=== PATIENT | male | born 1965 | race Caucasian/White ===

== ENCOUNTER 2024-02-16 17:04 | Inpatient (IN) | payer OTHER, SELFPAY ==
[2024-02-16] VITALS (15 sets, daily range): BP systolic 112–157; BP diastolic 71–100; BMI 33.1
--- NOTE | 2024-02-16 14:01 | ED.GENMED ---
History of Present Illness
<ANA Vogt - Last Filed: 02/16/24 16:16>
General
Chief Complaint: Cardiac Symptoms
Source: patient
Exam Limitations: none
Time Seen by Provider: 02/16/24 14:00
Nursing documentation reviewed up to this point in time: agreed with
History of Present Illness
History of Present Illness:
Patient is a 58-year-old male with past medical history of hypertension high cholesterol diabetes smoker presents to the ER with chest pain. He reports for the past week he has had this chest pain. It has woken him up in the middle of the night
for the past several days. His last episode he believes was Thursday night.
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 He currently describes this as chest pressure. He denies any radiation. Denies any associated nausea
vomiting. Denies any radiation.
He has no diagnosis of reflux though sometimes in the middle the night he does feel a burning sensation in his chest. Typically he reports that the episodes that have occurred in the middle of the night have resolved after 1-2 hrs with walking
around. he has not taken anything for his symptoms.
Review of Systems
<ANA Vogt - Last Filed: 02/16/24 16:16>
Review of Systems
Allergies reviewed?: Yes
All Other Systems: ROS reviewed and negative except as documented in HPI and ROS
Constitutional: Reports no symptoms
Respiratory: Reports no symptoms; Denies trouble breathing
Cardiac: Reports chest pain; Denies diaphoresis, palpitations or syncope
ABD/GI: Denies nausea or vomiting
: Reports no symptoms
Musculoskeletal: Reports no symptoms
Skin: Reports no symptoms
Neurological: Reports no symptoms
Psychiatric: Reports no symptoms
Phy Exam
<ANA Vogt - Last Filed: 02/16/24 16:16>
General Physical Exam
General Presentation: no apparent distress
General age: appears stated age
General Skin: warm and dry
General Habitus: normal
General Mental: alert
General Hydration: appears well hydrated
Cardiovascular Exam
Cardiovascular Exam: regular rate/rhythm, no murmur and normal peripheral pulses
Pulmonary Exam
Pulmonary Exam: lungs clear and no respiratory distress
Neurological Exam
Neurological Exam: alert and oriented x3
Course
<ANA Vogt - Last Filed: 02/16/24 16:16>
Orders/Labs/Results
Orders:
Orders
02/16/24 13:50
EKG [Electrocardiogram (*1)] Urgent
Reason for Study: Chest Pain
EKG- Treatment ONCE
02/16/24 13:59
Complete Blood Count/With Diff Urgent
Comprehensive Metabolic Panel Urgent
Prothrombin Time Urgent
Troponin I Urgent
02/16/24 14:26
Aspirin Chewable [Low Strength Aspirin] 324 mg PO NOW STA
Nitroglycerin Sublingual [Nitrostat (Sublingual)] 0.4 mg SL NOW STA
02/16/24 14:51
0.9% Sodium Chloride 1000 ml [Nss] 1,000 ml IV BOLUS
02/16/24 15:05
Nitroglycerin Sublingual [Nitrostat (Sublingual)] 0.4 mg SL NOW STA
02/16/24 15:27
Morphine Sulfate 4 mg IV NOW STA
02/16/24 15:28
Electrocardiogram (*1) Stat
Reason for Study: Other
Other Reason for Exam: chest pain
EKG- Treatment ONCE
Morphine Sulfate 4 mg .ROUTE .STK-MED ONE
02/16/24 15:42
Heparin 5,000 units IV NOW STA
Ticagrelor [Brilinta] 180 mg PO ONCE ONE
02/16/24 15:49
Heparin 1000 Units/500 ml [Heparin] 1,000 units in 500 ml .ROUTE .STK-MED
Heparin Sodium,Porcine/Ns/Pf [Heparin 2000 Units/1000 ml] 2,000 unit in 1,000 ml .ROUTE .STK-MED
Lidocaine HCl/Pf [Xylocaine-Mpf 1% Vial] 100 mg .ROUTE .STK-MED ONE
Nitroglycerin [Tridil] 1,500 mcg .ROUTE .STK-MED ONE
Verapamil Injectable [Isoptin/Verapamil Injection] 5 mg .ROUTE .STK-MED ONE
02/16/24 15:52
Fentanyl Citrate/Pf [Sublimaze] 100 mcg .ROUTE .STK-MED ONE
Midazolam HCl [Versed] 2 mg .ROUTE .STK-MED ONE
02/16/24 15:53
Heparin 10,000 units .ROUTE .STK-MED ONE
Abnormal Lab Results
02/16/24 02/16/24
13:59 16:02
WBC 12.0 H 10^3/uL
(4.8-10.8)
Abs Immat Gran (auto) 0.1 H 10^3/uL
(0-0.05)
Absolute Lymphs (auto) 4.7 H 10^3/uL
(1.2-3.4)
Absolute Monos (auto) 0.9 H 10^3/uL
(0.1-0.6)
BUN 25 H mg/dl
(9-20)
Glucose 136 H mg/dl
(70-99)
Troponin I 0.064 H* ng/ml
Albumin 5.2 H g/dl
(3.5-5.0)
POC ACT Low Range 216 H Seconds
(116-155)
02/16/24 13:59
02/16/24 13:59
Vital Signs
Initial and Last Documented VS:
Initial Vital Signs
Temp Pulse Resp BP Pulse Ox
98.3 F 97 19 155/100 99
02/16/24 13:53 02/16/24 13:53 02/16/24 13:53 02/16/24 13:53 02/16/24 13:53
Last Documented Vital Signs
Temp Pulse Resp BP Pulse Ox
98.3 F 94 11 140/86 98
02/16/24 13:53 02/16/24 15:48 02/16/24 15:48 02/16/24 15:48 02/16/24 15:30
<Terrence Tao, DO - Last Filed: 02/16/24 15:49>
Orders/Labs/Results
Orders:
Orders
02/16/24 13:50
EKG [Electrocardiogram (*1)] Urgent
Reason for Study: Chest Pain
EKG- Treatment ONCE
02/16/24 13:59
Complete Blood Count/With Diff Urgent
Comprehensive Metabolic Panel Urgent
Prothrombin Time Urgent
Troponin I Urgent
02/16/24 14:26
Aspirin Chewable [Low Strength Aspirin] 324 mg PO NOW STA
Nitroglycerin Sublingual [Nitrostat (Sublingual)] 0.4 mg SL NOW STA
02/16/24 14:51
0.9% Sodium Chloride 1000 ml [Nss] 1,000 ml IV BOLUS
02/16/24 15:05
Nitroglycerin Sublingual [Nitrostat (Sublingual)] 0.4 mg SL NOW STA
02/16/24 15:27
Morphine Sulfate 4 mg IV NOW STA
02/16/24 15:28
Electrocardiogram (*1) Stat
Reason for Study: Other
Other Reason for Exam: chest pain
EKG- Treatment ONCE
Morphine Sulfate 4 mg .ROUTE .STK-MED ONE
02/16/24 15:42
Heparin 5,000 units IV NOW STA
Ticagrelor [Brilinta] 180 mg PO ONCE ONE
02/16/24 15:49
Heparin 1000 Units/500 ml [Heparin] 1,000 units in 500 ml .ROUTE .STK-MED
Heparin Sodium,Porcine/Ns/Pf [Heparin 2000 Units/1000 ml] 2,000 unit in 1,000 ml .ROUTE .STK-MED
Lidocaine HCl/Pf [Xylocaine-Mpf 1% Vial] 100 mg .ROUTE .STK-MED ONE
Nitroglycerin [Tridil] 1,500 mcg .ROUTE .STK-MED ONE
Verapamil Injectable [Isoptin/Verapamil Injection] 5 mg .ROUTE .STK-MED ONE
02/16/24 15:52
Fentanyl Citrate/Pf [Sublimaze] 100 mcg .ROUTE .STK-MED ONE
Midazolam HCl [Versed] 2 mg .ROUTE .STK-MED ONE
02/16/24 15:53
Heparin 10,000 units .ROUTE .STK-MED ONE
Abnormal Lab Results
02/16/24 02/16/24
13:59 16:02
WBC 12.0 H 10^3/uL
(4.8-10.8)
Abs Immat Gran (auto) 0.1 H 10^3/uL
(0-0.05)
Absolute Lymphs (auto) 4.7 H 10^3/uL
(1.2-3.4)
Absolute Monos (auto) 0.9 H 10^3/uL
(0.1-0.6)
BUN 25 H mg/dl
(9-20)
Glucose 136 H mg/dl
(70-99)
Troponin I 0.064 H* ng/ml
Albumin 5.2 H g/dl
(3.5-5.0)
POC ACT Low Range 216 H Seconds
(116-155)
02/16/24 13:59
02/16/24 13:59
Vital Signs
Initial and Last Documented VS:
Initial Vital Signs
Temp Pulse Resp BP Pulse Ox
98.3 F 97 19 155/100 99
02/16/24 13:53 02/16/24 13:53 02/16/24 13:53 02/16/24 13:53 02/16/24 13:53
Last Documented Vital Signs
Temp Pulse Resp BP Pulse Ox
98.3 F 94 11 140/86 98
02/16/24 13:53 02/16/24 15:48 02/16/24 15:48 02/16/24 15:48 02/16/24 15:30
<ANA Vogt - Last Filed: 02/16/24 16:16>
MDM/Problems Addressed
Differential Diagnosis Includes:
Not limited to ACS, reflux, musculoskeletal chest pain
MDM/Problems Addressed:
1510: Patient is a 58-year-old male who is a smoker history of hypertension high cholesterol and diabetes presents to the ER for evaluation of chest pain. He has had intermittent chest pain this week which has awoken him up in the middle of the
night. Each episode has lasted for maybe 1 to 2 hours and goes away when he walks around. He has not taken anything for pain. He denies any radiation. He did initially describe this as burning however today prior to arrival he got into a client
and started sweating and having chest pressure. This does not feel like it is burning. He denies any radiation nausea vomiting shortness of breath. He presents hypertensive, on exam his lungs are clear is nontachycardic his abdomen is nontender.
Cardiac troponin ordered and elevated at 0.064. No acute elevation patient was given aspirin 1 nitroglycerin which did not relieve symptoms will attempt another nitroglycerin and reevaluate. Case discussed ED physician.
Repeat ekg questionable elevation in inferior leads discussed with cardiology STEMI called. Cardiology at bedside patient to [facility] . Pain remains the same consistent.
<ANA Vogt - Last Filed: 02/16/24 16:16>
*Pulse Oximetry
Patient hypoxic: no
*EKG
Interpreted by ED Provider?: Yes
Comparison EKG: no comparison EKG present
Heart Rate: 88
Rate: normal
Rhythm: sinus
Ischemia: non-specific ST changes
*Critical Care Note
Total Time (30-74mins, 75-104mins- exclusive of procedures): Not Applicable (Critical care statement: A total of 30 minutes of critical care time was provided for this patient. This includes management of unstable vital signs, evaluation of the
patient at bedside, reviewing the patient's pertinent medical records, discussion with consultants, review of old EKGs and review of)
<ANA Vogt - Last Filed: 02/16/24 16:16>
Patient Management
Discussion with other providers: [employer] Supervisor (DR Rojas, DR Coelho (DR Coelho at bedside ) )
ED Attending Note
<ANA Vogt - Last Filed: 02/16/24 16:16>
-
Portions of this chart may have been created with voice recognition software.� Occasional wrong word or��sound alike� substitutions may have occurred due to the inherent limitations of voice recognition software.
<Terrence Tao DO - Last Filed: 02/16/24 15:49>
ED Attending Note
Patient seen and examined by attending physician: Yes
ED Attending Note:
I reviewed and agree with history as in medical [facility]. Patient had chest pain, initially nonspecific ST changes, repeat EKG showing STEMI. Alerted Dr. Calvert, who stated Dr. Coelho will be taking patient to [facility]. Aspirin, heparin and
Brilinta given.
Discharge Plan
Departure
Patient Disposition: [facility]
Date of Disposition: 02/16/24
Time of Disposition: 15:45
Presentation/result/management discussed w/ accepting MD/DO: kristen
Patient with high blood pressure during this ER visit?: Yes
Condition: Fair
Covid-19: Not Applicable
Discharge Problem:
Chest pain
Interventions
Interventions:
*Risk Screen - Suicide Last Done: 02/16/24 13:53
*General Assessment Last Done: 02/16/24 13:53
*Neglect/Abuse Screening Last Done: 02/16/24 13:53
ED- Fall Risk Assessment Last Done: 02/16/24 14:05
*ED COVID-19 Vaccine History Last Done: 02/16/24 14:05
*Nursing Disposition Last Done: 02/16/24 15:52
ED- Pulmonary Assessment Last Done: 02/16/24 14:05
ED- Cardiac Assessment Last Done: 02/16/24 14:05
Discharge Date and Time
Discharge Date/Time: 02/16/24 15:53
[2024-02-16 14:24] LABS: % Eosinophils 1.2 % (0-6); % Immature Granulocytes 0.5 % (0-0.5); % Lymphocytes 39.4 % (20.5-51.1); % Monocytes 7.3 % (1.7-9.3); % Neutrophils 50.6 % (42.2-75.2); Absolute Basophils 0.1 10^3/uL (0-0.2); Absolute Eosinophils 0.1 10^3/uL (0-0.7); Absolute Immature Granulocytes 0.1 10^3/uL (0-0.05); Absolute Lymphocytes 4.7 10^3/uL (1.2-3.4); Absolute Monocytes 0.9 10^3/uL (0.1-0.6); Absolute Neutrophils 6.1 10^3/uL (1.4-6.5); Hematocrit 50.2 % (39.0-52.0); Hemoglobin 17.3 g/dL (13.0-18.0); Mean Corp Hgb Conc. 34.5 g/dL (33.0-37.0); Mean Corpuscular Hgb 30.1 pg (27.0-31.0); Mean Corpuscular Volume 87.5 fL (80.0-94.0); Mean Platelet Volume 9.8 fL (7.4-10.4); Nucleated Red Blood Cells % 0 % (-); Platelet Count 252 10^3/uL (130-400); Red Blood Cell Count 5.74 10^6/uL (4.70-6.10); Red Cell Dist. Width 12.3 % (11.5-14.5)
[2024-02-16 14:32] LABS: ALT (SGPT) 32 U/L (0-50); AST (SGOT) 30 U/L (17-59); Albumin 5.2 g/dl (3.5-5.0); Alkaline Phosphatase 59 U/L (38-126); Blood Urea Nitrogen 25 mg/dl (9-20); Carbon Dioxide 27 mmol/L (22-30); Chloride 101 mmol/L (98-107); Estimated Creatinine Clearance 91 ml/min; Glucose 136 mg/dl (70-99); Potassium 4.3 mmol/L (3.5-5.1); Sodium 141 mmol/L (135-145); Total Protein 7.4 g/dl (6.3-8.2); eGFR > 60.00
[2024-02-16] MEDS: NITROSTAT (SUBLINGUAL) 0.4 MG SL ×2 (14:41→15:05)
[2024-02-16] MEDS: LOW STRENGTH ASPIRIN 324 MG PO (14:41)
[2024-02-16 14:57] LABS: Troponin I 0.064 ng/ml
[2024-02-16] MEDS: NSS 1000 IV ×2 (15:06→18:41)
[2024-02-16] MEDS: MORPHINE SULFATE 4 MG IV (15:30)
[2024-02-16] MEDS: BRILINTA 180 MG PO (15:45)
[2024-02-16] MEDS: HEPARIN 5000 UNITS IV (15:45)
[2024-02-16 16:10] LABS: ACT-LR - POC 216 Seconds (116-155)
[2024-02-16 16:22] LABS: ACT-LR - POC 261 Seconds (116-155)
--- NOTE | 2024-02-16 16:23 | HPS.HSE ---
Family Physician
-
Family Physician: * NONE
Chief Complaint
-
chest pain/pressure
History of Present Illness
This is a 58 y/o white male, PMH sig for HTN, HLD, NIDDM, active tobacco abuse, no sig FH, lives in [place] and [place].
Presented to ER after several days of intermittent chest pain/burning, no associated symptoms, waking him at night, duration of 1-2 hours, relieved with ambulation. Today, he developed chest pain and pressure with diaphoresis while at work. This
prompted him to come to the ER. EKG SR 90s with inferior ST elevations, as well as anteroseptal TWI. He was given aspirin 324mg, brilinta 180mg, heparin 5000u, as well as morphine 4mg for pain. He continues to have 7-8/10 chest pain/pressure with
mild dyspnea. First troponin 0.064. 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
Medical History
Past Medical History
Past Medical History: Reports HTN, Hypercholesterolemia, NIDDM and Other (obesity)
Past Surgical History: Reports None
Social History
Tobacco: Smoker (1/2-1PPD x25 years)
Alcohol: None
Drug: None
Personal:
Living: With Family
Employment: Employed (lives in [place], [place])
Family History
Family History: Not pertinent
Allergies / Home Medications
Allergies reflects when Allergies were last updated in [facility].
Home Medications with original date entered in [facility]
Allergy/Medication List:
ALLG: NKDA
MEDS: amlodipine 5mg/daily
empaglifozin 25mg/daily
tricor 145mg/daily
losartan/HCTZ 100/25mg/daily
pioglitazone 30mg/daily
trazodone 50mg/HSPRN
Review of Systems
-
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
History Source: Patient
A 12 point ROS was completed and negative except as noted: Yes
Cardiac: Reports Chest Pain (11/24 on cath table) and Diaphoresis
Physical Exam
Vital Signs
Vital Signs
Temp Pulse Resp BP Pulse Ox
98.3 F 94 11 140/86 98
02/16/24 13:53 02/16/24 15:48 02/16/24 15:48 02/16/24 15:48 02/16/24 15:30
Physical Exam
General: Other (PE deferred d/t urgent nature of cath)
Laboratory Results
-
02/16/24 13:59
02/16/24 13:59
Laboratory Results
PT 13.0 Sec (11.4-14.6) 02/16/24 13:59
INR 1.00 02/16/24 13:59
Total Bilirubin 1.0 mg/dl (0.2-1.3) 02/16/24 13:59
AST 30 U/L (17-59) 02/16/24 13:59
ALT 32 U/L (0-50) 02/16/24 13:59
Alkaline Phosphatase 59 U/L (38-126) 02/16/24 13:59
Troponin I 0.064 ng/ml H* 02/16/24 13:59
Laboratory Tests
02/16/24
13:59
Troponin I 0.064 H*
Data Reviewed
-
Medical Tests (Nuc Med, Echo, EKG etc): Image Personally Visualized and interpreted, Report Reviewed by me and Discussed with Physician
Lab Data: Labs Reviewed by me and Discussed with Physician
Impression/Plan
-
This is a 58 y/o white male, PMH sig for HTN, HLD, NIDDM, active tobacco abuse, no sig FH, lives in [place] and [place] the [employer] [facility] [employer] [place].
Presented to ER after several days of intermittent chest pain/burning, no associated symptoms, waking him at night, duration of 1-2 hours, relieved with ambulation. Today, he developed non-exertional chest pain and pressure with diaphoresis while at
work. This prompted him to come to the ER. EKG SR 90s with inferior ST elevations, as well as anteroseptal TWI. He was given aspirin 324mg, brilinta 180mg, heparin 5000u, as well as morphine 4mg for pain. He continues to have 7-8/10 chest
pain/pressure with mild dyspnea. First troponin 0.064. 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
IMPRESSION/PLAN:
Acute Inferior STEMI
Urgent LHC now
1st troponin 0.064- trend to peak
asa 325mg/brilinta 180mg given in ER with heparin 5000u
currently 7/10 chest pain, given morphine 4mg in ER
Anticipate DAPT w/asa, brilinta- CM to check cost
New start metoprolol succinate 25mg BID
Echocardiogram in AM
cardiac rehab
followup at [facility] at d/c
HLD- currently not on statin
start atorvastatin 80mg and check lipid profile in AM
HTN- BP soft- will hold on losartan/HCT and amlodipine for now
monitor trends
DM- continue empagliflozin, pioglitazone
check HgbA1C in AM, Insulin sliding scale
DM consult if needed
Tobacco abuse- must quit
nicoderm patch
Obesity- weight loss encouraged
[2024-02-16 16:41] LABS: ACT-LR - POC 252 Seconds (116-155)
[2024-02-16 16:53] LABS: ACT-LR - POC 247 Seconds (116-155)
--- NOTE | 2024-02-16 17:04 | ITS.CL.CATH ---
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
Cardiac Catheterization
Procedure Report:
LEFT HEART CATHETERIZATION AND CORONARY INTERVENTION
Date of Procedure: February 16, 2024
Referring: [place] emergency department
PROCEDURES:
1. Left heart catheterization, coronary angiogram.
2. Ultrasound-guided access.
3. Successful percutaneous coronary artery intervention of a hazy, thrombotic 90 to 95% proximal OM1 stenosis (MARTÍN II flow) with one 3.0 x 26 mm Medtronic Catrachito drug-eluting stent, postdilated using a 3.0 x 15 mm NC balloon at 18 joão distally and
22 joão proximally with an excellent angiographic result and MARTÍN-3 flow restored.
INDICATION: Jose G is a 58-year-old gentleman with past medical history of hypertension, type 2 diabetes mellitus, [id number], hyperlipidemia, active tobacco user, smokes half a pack of cigarettes a day, no family history of premature
coronary artery disease who is here for work to meet a client from [facility] reporting 1 week of stuttering substernal chest pressure which worsened earlier today presenting to the emergency department with initial EKG concerning for ST
elevations in inferior leads with ST depressions in V1 and V2 concerning for an acute infarct for which he was emergently taken to the heart catheterization lab. In the emergency department he received 325 mg of aspirin, 180 mg of Brilinta, 5000
units of unfractionated IV heparin and 2 sublingual nitroglycerin with persistent 7 out of [address] to the heart catheterization lab.
ACCESS: Right radial artery, 6 Icelandic sheath, under ultrasound guidance.
HEMODYNAMICS : (mmHg)
AO (s/d) : 136/88
LV (s/d) : 135/15
LVEDP : 29
CORONARY FINDINGS
DOMINANCE: Right
LEFT MAIN: The left main artery is a large-caliber vessel which gives rise to the left anterior descending artery and the left circumflex artery. There is minimal luminal irregularities.
LEFT ANTERIOR DESCENDING: The left anterior descending artery is a large-caliber vessel which gives rise to 2 major diagonal branch as it courses through the anterior interventricular groove and wraps around the apex. There is mild diffuse
atherosclerotic plaque. There are robust collaterals to the RPDA from the left side.
CIRCUMFLEX: The left circumflex artery is a large-caliber vessel which gives rise to 1 major large caliber branching OM1. Mid left circumflex extending into proximal OM1 has a hazy, thrombotic 90 to 95% stenosis with MARTÍN II flow which is thought
to be the culprit of presenting ACS and was intervened on. [id number] collaterals are noted.
RIGHT CORONARY ARTERY: The right coronary artery has 100% chronic total occlusion in the proximal portion with [id number] collaterals.
CORONARY INTERVENTION: The left coronary artery was selectively engaged using a 6 Icelandic EBU 3.75 guide catheter. Additional heparin was given to maintain a therapeutic ACT throughout the case. A 190 cm 0.014' BMW coronary wire was carefully
navigated across the proximal OM1 stenosis into the distal branch and the lesion was predilated using a 2.5 x 15 mm semicompliant balloon. Soon after predilatation, patient complained of significantly worsened pain to 9 out of 10. We noted that
some thrombus had embolized in the upper branch of the OM1 with MARTÍN II flow. In this setting, decision was made to also give 2 Integrilin boluses. The lesion was subsequently stented using a 3.0 x 26 mm Medtronic Catrachito drug-eluting stent and
postdilated with a 3.0 x 15 mm NC balloon at 18 joão distally and 22 joão proximally with an excellent angiographic result and MARTÍN-3 flow was restored into both the distal branches. Given patient came complaining of worsening shortness of breath in
the setting of known elevated LVEDP, he was given 40 mg of IV Lasix on the table and decision was made to not proceed with IVUS to allow patient to sit up soon as possible. Patient's chest discomfort had improved significantly at the end of the
case, down to 2 out of 10. No acute complications.
SEDATION: 54 minutes of procedural sedation was utilized. An independent medical voucher clerk was present to assist with and help manage the patient's level of consciousness and physiologic status.
RADIATION SUMMARY: Fluoro Time (min): 9.7, Dose (mGy): 1534.44, DAP (Gy.cm2) : 105.5
Closure Device: Vascular band over right radial artery, 12 cc of air.
CONCLUSIONS
1. Successful percutaneous coronary artery intervention of a hazy, thrombotic 90 to 95% proximal OM1 stenosis (MARTÍN II flow) with one 3.0 x 26 mm Medtronic Catrachito drug-eluting stent, postdilated using a 3.0 x 15 mm NC balloon at 18 joão distally and
22 joão proximally with an excellent angiographic result and MARTÍN-3 flow restored.
2. 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
3. Significantly elevated LVEDP at 29 mmHg.
RECOMMENDATIONS
1. Uninterrupted dual antiplatelet therapy with daily baby aspirin and Brilinta 90 mg twice daily along with high intensity statin and beta-navi as tolerated.
2. Wean radial band per protocol.
3. Full echocardiogram to assess biventricular function and rule out any significant valvular abnormalities.
4. Aggressive management of cardiovascular risk factors.
5. Strongly advised and encouraged complete smoking cessation.
6. Eventual referral for outpatient cardiac rehab.
Milla Coelho MD, FAC, [facility]
--- NOTE | 2024-02-16 17:18 | PTCARENOTE ---
Rec'd Pt post cardiac cath, A,A+Ox3, c/o CP rated 2-3/10. Dr Coelho came and spoke with Pt and is aware of pain. R radial arm band in place, clean and dry. + R radial pulse. SR on monitor.
[2024-02-16] MEDS: LIPITOR 80 MG PO (18:16)
[2024-02-16] MEDS: NICODERM TRANSDERMAL 21 MG TRANSDERM (18:16)
[2024-02-16] MEDS: TOPROL XL 25 MG PO (19:36)
[2024-02-16] MEDS: TYLENOL 650 MG PO (19:36)
[2024-02-16] MEDS: MORPHINE SULFATE 2 MG IV (19:37)
[2024-02-16 21:42] LABS: Glucose - Point of Care 204 mg/dl (70-99)
[2024-02-16] MEDS: DESYREL 50 MG PO (22:42)
[2024-02-17] VITALS (7 sets, daily range): BP systolic 97–113; BP diastolic 70–82; BMI 32.6
--- NOTE | 2024-02-17 01:01 | PTCARENOTE ---
Pt received start of shift, HR SR w/ occasional PVCs. R radial band off ~2154. Dressing CDI, soft - no hematoma. R radial pulse normal. VSS. Pt w/ 5/10 CP, PRN morphine and PRN tylenol administered - see MAR. Effective, pain down to 2/10 and pt
appears much more comfortable. Educated pt on CAD/OR. When reinforcing blood sugar management, pt states he will refuse to take any insulin while at the hospital and after discharge. Stressed importance of BG control in relation to CAD. Pt very
motivated to modify lifestyle otherwise. 2L NC placed on pt overnight - refusing hospital cpap for sleep apnea. VSS.
~8 pt with what appears to be 16 beats VT. Pt asymptomatic, VSS.
[2024-02-17 03:34] LABS: Hematocrit 47.8 % (39.0-52.0); Hemoglobin 16.5 g/dL (13.0-18.0); Mean Corp Hgb Conc. 34.5 g/dL (33.0-37.0); Mean Corpuscular Hgb 29.8 pg (27.0-31.0); Mean Corpuscular Volume 86.3 fL (80.0-94.0); Platelet Count 237 10^3/uL (130-400); Red Blood Cell Count 5.54 10^6/uL (4.70-6.10); Red Cell Dist. Width 12.4 % (11.5-14.5); White Blood Cell Count 18.8 10^3/uL (4.8-10.8)
[2024-02-17 03:58] LABS: Blood Urea Nitrogen 22 mg/dl (9-20); Calcium 9.3 mg/dl (8.4-10.2); Carbon Dioxide 27 mmol/L (22-30); Chloride 99 mmol/L (98-107); Estimated Creatinine Clearance 109 ml/min; Glucose 117 mg/dl (70-99); HDL Cholesterol 39 mg/dl; LDL Cholesterol, Calculated 107 mg/dl; Potassium 3.9 mmol/L (3.5-5.1); Sodium 138 mmol/L (135-145); Total Cholesterol 197 mg/dl (50-199); Triglyceride 259 mg/dl (10-149); Very Low Density Lipoprotein 51 mg/dl (0-30); eGFR > 60.00
[2024-02-17 07:14] LABS: Glucose - Point of Care 142 mg/dl (70-99)
--- NOTE | 2024-02-17 08:25 | W.PN.CARDCBS ---
Addendum entered and electronically signed by Nicolette Rodriguez DO 02/18/24 00:16:
I saw and examined the patient.
The Scuba Instructor's note was reviewed and I agree with the note.
Comment: Seen and examined this am- patient ambulating in room. Denies chest pain/pressure. No SOB. No dizziness. Studies/labs and testing results reviewed.
GEN:No acute distress, AAOX3
Heart: Regular, positive S1/S2,No murmur
Lungs: CTA b/l, decreased
Abd: Positive BS, NT/ND, neg rebound/rigidity/guarding
Ext: no edema. right radial site intact
Neuro: nonfocal
Plan:
Acute Inferior STEMI s/p PCI OM1 3.0 x 26 mm Medtronic Catrachito DARIAN 02/15/45 and TCO RCA with L-R collaterals
-troponin peaked at 126
-CP free.
-tele with NSVT. New beta navi
- DAPT ASA/Brilinta for at least one year uninterrupted- CM to assess cost
New ICM s/p STEMI
-Echocardiogram 02/17/24 with Mildly reduced left ventricular systolic function. Left ventricular ejection fraction is visually estimated 40% with hypokinesis of the basal- mid inferior, inferolateral and mid anterolateral collins. Mild concentric
left ventricular hypertrophy. Normal right ventricular size and systolic function. No significant valve disease. Proximal ascending aorta 3.9 cm. No pericardial effusion
-NSVT on tele overnight; currently in NSR
- K 3.9. Monitor K/Mag
- OMT: new start to metoprolol succinate 25mg BID- could consider changing to Coreg.
- Losartan/HCTZ stopped. Would transition to Entresto 24/26mg BID if BP allows tomorrow
- Continue SGTL2 inh [Jardiance 25mg daily as OP; T2DM]
- IV Lasix 40mg today and monitor response. Likely will not need ongoing Lasix but would add Aldactone if able.
-check proBNP
- CHF/CAD education
- cardiac rehab
HLD- currently not on statin, LDL 107, TG 259
- New start atorvastatin 80mg daily; continue fenofibrate
- Glycemic control stressed
- Healthy diet recommendations reviewed
- Goal LDL < 55mg/dL; goal TG < 150mg/dL if not ideally < 100mg/dL
- will need f/u LFT, lipid profile in 6-8 weeks
HTN
-Lower BP trends post ME with ICM
-New Toprol XL 25mg BID- consider changing to Coreg
-Eventual transition to Entresto 24/26mg daily [stop OP Losartan/HCTZ and norvasc]
-IV lasix today and monitor response
-Goal normotension
Type 2 DM
-HgbA1C 7.4%, refusing Insulin sliding scale
-Given echocardiogram STOP Actos
-Consider adding metformin
-Continue Jardiance 25mg daily- changed to Farxiga this admission due to formulary
-We revieed dietary recommendations and blood sugar monitoring.
-Consult DM OCCUP THER
Tobacco abuse
-Cessation strongly advised
-NicoDerm patch
-Patient lives in [facility] and was in this area for work
-Will need to find Rod Buster in [place] for f/u - provided name and number to cardiology at [facility] however still several hours from his home. He reports options are limited but will reach out to his PCP.
-Asked produce laborer OCCUP THER to put cardiac testing [facility], echo on a disk
Original Note:
Today's Communication / Plan
-
Continue post ME care
Echo today
CM to dalila alegre
oob ambulate
Impression / Plan
-
This is a 58 y/o white male, PMH sig for HTN, HLD, NIDDM, active tobacco abuse, no sig FH, lives in [place] and travels to the [facility] for work.
Presented to ER after several days of intermittent chest pain/burning, no associated symptoms, waking him at night, duration of 1-2 hours, relieved with ambulation. Today, he developed non-exertional chest pain and pressure with diaphoresis while at
work. This prompted him to come to the ER. EKG SR 90s with inferior ST elevations, as well as anteroseptal TWI. He was given aspirin 324mg, brilinta 180mg, heparin 5000u, as well as morphine 4mg for pain. He continues to have 7-12/25 chest
pain/pressure with mild dyspnea. First troponin 0.064. Brought urgently to produce laborer.
IMPRESSION/PLAN:
Acute Inferior STEMI - s/p PCI OM1 3.0 x 26 mm Medtronic [place] DARIAN 02/15
HIGH SCHOOL SCIENCE TUTOR RCA with L to R collaterals
tele with NSVT o/n last 430am
troponin peaked at 126
Echo today, elevated LVEDP at cath
IV lasix x1, -3kg, RA, denies SOB
DAPT ASA/Brilinta CM to eval cost
new start to metoprolol succinate 25mg BID
BP still low continue to hold amlodipine and losartan/HCTZ
cardiac rehab
oob ambulate later today
Will need to find Rod Buster in [place] for f/u
HLD- currently not on statin, LDL 107, TG 259
start atorvastatin 80mg and continue fenofibrate
will need f/u LFT, lipid profile in 6-8 weeks
HTN- BP soft- will hold on losartan/HCT and amlodipine for now
with new start to torpol, most likely will stop amlodipine and HCTZ, resume losartan based on Echo/BP trends
DM- continue empagliflozin, pioglitazone
HgbA1C 7.4%, refusing Insulin sliding scale
DM consult if EF low should not continue Actos
Tobacco abuse- must quit
NicoDerm patch
Obesity- weight loss encouraged
02/15 [facility]:
1. Successful percutaneous coronary artery intervention of a hazy, thrombotic 90 to 95% proximal OM1 stenosis (MARTÍN II flow) with one 3.0 x 26 mm Medtronic Catrachito drug-eluting stent, postdilated using a 3.0 x 15 mm NC balloon at 18 joão distally and
22 joão proximally with an excellent angiographic result and MARTÍN-3 flow restored.
2. 100% chronic total occlusion of proximal RCA with [id number] collaterals.
3. Significantly elevated LVEDP at 29 mmHg.
Progress Note - Rod Buster
Subjective
Date of Service: February 17, 2024
no cp, sob
Objective
Labs:
02/17/24 03:12
02/17/24 03:12
Labs
Hgb 16.5 g/dL (13.0-18.0) 02/17/24 03:12
Hct 47.8 % (39.0-52.0) 02/17/24 03:12
Plt Count 237 10^3/uL (130-400) 02/17/24 03:12
PT 13.0 Sec (11.4-14.6) 02/16/24 13:59
INR 1.00 02/16/24 13:59
Sodium 138 mmol/L (135-145) 02/17/24 03:12
Potassium 3.9 mmol/L (3.5-5.1) 02/17/24 03:12
BUN 22 mg/dl (9-20) H 02/17/24 03:12
Creatinine 1.0 mg/dL (0.7-1.3) 02/17/24 03:12
Glucose 117 mg/dl (70-99) H 02/17/24 03:12
Troponins
02/16/24 02/16/24 02/17/24
13:59 22:19 03:12
Troponin I 0.064 H* 126.000 H* 95.100 H*
Vital Signs and I&O:
Vital Signs
Temp Pulse Resp BP Pulse Ox
98.5 F 94 20 113/70 95
02/17/24 07:08 02/17/24 07:30 02/17/24 07:08 02/17/24 07:11 02/17/24 07:08
Vital Signs
Temp Pulse Resp BP Pulse Ox
98.5 F 94 20 113/70 95
02/17/24 07:08 02/17/24 07:30 02/17/24 07:08 02/17/24 07:11 02/17/24 07:08
Intake & Output
02/15/24 02/16/24 02/17/24 02/18/24
06:59 06:59 06:59 06:59
Intake Total 855 / 855
Output Total 2100 / 2100 500 / 500
Balance -1245 / -1245 -500 / -500
Physical Exam
Physical Exam
NAD, AOX3
S1, s2, RRR
CTAB<non labored
SNTND bsx4
R rad site c/d/i no HT, good pulse
[2024-02-17] MEDS: NICODERM TRANSDERMAL 21 MG TRANSDERM (09:09)
[2024-02-17] MEDS: BRILINTA 90 MG PO ×2 (09:09→20:08)
[2024-02-17] MEDS: TRICOR 145 MG PO (09:09)
[2024-02-17] MEDS: TOPROL XL 25 MG PO ×2 (09:10→20:08)
[2024-02-17] MEDS: FARXIGA 10 MG PO (09:10)
[2024-02-17] MEDS: LOW STRENGTH ASPIRIN 81 MG PO (09:10)
[2024-02-17] MEDS: PROTONIX 40 MG PO (09:10)
[2024-02-17] MEDS: ACTOS 30 MG PO (09:10)
[2024-02-17 09:25] LABS: Glycohemoglobin (HgbA1c) 7.4 % (4.0-5.6)
--- NOTE | 2024-02-17 11:04 | CARDSERVLU ---
Echocardiogram with Lumason completed after protocol screening completed. Allergies verified.
Patent IV site: Left antecubital 18 G PC (in patient)
IV site flushed with 0.9% NaCl pre and post administration.
Diluted bolus method utilized to enhance visualization of ventricular collins.
Total volume given: __5__ mL
Patient tolerated all procedures well without complications.
[2024-02-17 11:36] LABS: Glucose - Point of Care 132 mg/dl (70-99)
[2024-02-17] MEDS: LASIX 20 MG IV (12:38)
--- NOTE | 2024-02-17 12:38 | CM ---
Pricing on Brilinta through the patient's [facility] is $440 for a 30 day supply. The patient has a $3600 deductible. The patient qualifies for the coupon card with a max of $200 which will bring the cost to $240 a month. I will also place
a free 30 day coupon in his red discharge folder. The patient uses [facility] in [place], but will go to the [facility] in [place]. I called to confirm and they do have it available.
--- NOTE | 2024-02-17 13:01 | CM ---
Chart reviewed. Patient is travels the [facility] for work and is originally from [place] and also has a residence in [place]. Patient is independent of ADLS, lives with Significant Other in a 2 STH, 0 PATY, 0 DME. Plan is for the patient to return
home when medically stable. CM to follow
--- NOTE | 2024-02-17 14:47 | PN.DE.MGMTRT ---
Insulin Management
- -
02/17/2024: Diabetes Management Consult
58 year old male with PMH sig for HTN, HLD, NIDDM, active tobacco abuse, no sig FH, lives in [place] and travels to the [facility] for work.
Presented to ER after several days of intermittent chest pain/burning, noted for inferior STEMI, now s/p PCI. EF <40 per recent Echo
A1C 7.4%, Cr 1.0, eGFR >60, was taking Actos 30mg daily and Jardiance 25mg daily.
Pt awake, A/O x3, sitting up in chair, pleasant, offers no complaints, able to discuss diabetes management
States his A1C was >11% a year ago(now 7.4%) and that he underwent an intense lifestyle modification and has lost ~50lbs.
He has tried Metformin in the past and was discontinued due to severe GI side effects.
Discussed Actos and it's adverse reactions (risk of OR and heart failure) and offered switching it to Januvia but pt declined, stating that he would like to wait until he gets home and will discuss with his PCP. Pt states he has several working
meters and does not need a new one.
His glucose has been stable and in range since admission.
FBG 117 today, premeal 132 to 142 not requiring any corrective insulin with meals.
Will d/c Actos and cont current regimen; switch to Jardiance 25mg daily at discharge.
Diabetes History
- -
Type of Diabetes: 2
Pre-Admission Diabetes Regimen
02/17/24
03:12
Creatinine 1.0
Lab Results
Hemoglobin A1c 7.4 % (4.0-5.6) H 02/17/24 03:12
Insulin Pump Settings
IP Diabetes Regimen
02/16/24 02/17/24 02/17/24
21:41 03:12 07:12
Glucose 117 H
POC Glucose 204 H 142 H
10/02/24
11:35
Glucose
POC Glucose 132 H
Meal type: Breakfast
Meal type: Dinner
Amount consumed: 85%
Amount consumed: 35%
Patient Education
[2024-02-17 17:29] LABS: Glucose - Point of Care 173 mg/dl (70-99)
[2024-02-17] MEDS: LIPITOR 80 MG PO (17:54)
[2024-02-17] MEDS: LOVENOX 40 MG SC (17:54)
--- NOTE | 2024-02-17 18:27 | PTCARENOTE ---
Pt OOB independently. Echo done. Pt reports several episodes of 'feeling short of breath' while standing in his room, Adeline Marshall, FOOD MOBILE DRIVER aware, lasix dose given with some improvement. Pt is coughing and states he has 'smoked his last cigarette'. Pt
accepting of need for lifestyle changes and dietary changes. He declines novolog coverage at this time. Telemetry shows sinus rhythm , no NSVT since 04:30 today. Pt hoping to drive back to [place] after discharge(5 hours) and states understanding
that he should stop and walk every hour to prevent a DVT.
[2024-02-17] MEDS: DESYREL 50 MG PO (22:05)
[2024-02-17 22:36] LABS: Glucose - Point of Care 121 mg/dl (70-99)
[2024-02-18 01:46] VITALS: BP 116/79
--- NOTE | 2024-02-18 02:23 | PTCARENOTE ---
Pt received start of shift, HR SR. Pt states SOB feels better since receiving lasix. Pt OOB walking the unit independently. Denies any CP. Pt curious about echocardiogram results and significance of ejection fraction. Educated pt on normal EF vs HF
EF, acute vs chronic HF, medications that may help with HF, and other HF related information. HF education packet given to pt for light reading.
[2024-02-18 03:02] VITALS: BMI 32.0
[2024-02-18 03:13] LABS: Hematocrit 46.1 % (39.0-52.0); Hemoglobin 15.9 g/dL (13.0-18.0); Mean Corp Hgb Conc. 34.5 g/dL (33.0-37.0); Mean Corpuscular Hgb 30.9 pg (27.0-31.0); Mean Corpuscular Volume 89.7 fL (80.0-94.0); Mean Platelet Volume 9.9 fL (7.4-10.4); Platelet Count 216 10^3/uL (130-400); Red Blood Cell Count 5.14 10^6/uL (4.70-6.10); Red Cell Dist. Width 12.3 % (11.5-14.5); White Blood Cell Count 14.7 10^3/uL (4.8-10.8)
[2024-02-18 03:25] LABS: Blood Urea Nitrogen 27 mg/dl (9-20); Calcium 9.1 mg/dl (8.4-10.2); Carbon Dioxide 27 mmol/L (22-30); Chloride 100 mmol/L (98-107); Estimated Creatinine Clearance 98 ml/min; Glucose 112 mg/dl (70-99); Magnesium 2.2 mg/dl (1.6-2.3); Potassium 3.9 mmol/L (3.5-5.1); Sodium 138 mmol/L (135-145); eGFR > 60.00
[2024-02-18 03:33] LABS: NT-proBNP 1100 pg/ml
[2024-02-18 07:04] VITALS: BP 110/80
[2024-02-18 07:07] LABS: Glucose - Point of Care 149 mg/dl (70-99)
[2024-02-18 07:09] LABS: Glucose - Point of Care 129 mg/dl (70-99)
--- NOTE | 2024-02-18 08:27 | PN.DE.MGMTRT ---
Insulin Management
- -
02/18/2024: Diabetes Management Consult Follow up
Patient c/o intermittent chest pain/burning, noted for inferior STEMI. PMH HTN, HLD, NIDDM, active tobacco abuse, no sig FH, lives in [place] and travels to the [facility] for work.
S/P cardiac cath PCI EF <40 per recent Echo
A1C 7.4%, Cr 1.0, eGFR >60, Prior to admission was taking Actos 30mg daily and Jardiance 25mg daily.
Pt awake, A/O x3, sitting up in chair, pleasant, offers no complaints, able to discuss diabetes management
States his A1C was >11% a year ago(now 7.4%) and that he underwent an intense lifestyle modification and has lost ~50lbs.
He has tried Metformin in the past and was discontinued due to severe GI side effects.
Discussed Actos and it's adverse reactions (risk of [place] and heart failure) and offered switching it to Januvia but pt declined, stating that he would like to wait until he gets home and will discuss with his PCP. Pt states he has several working
meters and does not need a new one.
Currently receiving Farxiga 10 mg daily, glucose has been stable FBG 129 today, premeal 132 to 173, he refused corrective insulin when required..
Actos has been stopped. Patient should resume Jardiance 25mg daily at discharge.
Diabetes History
- -
Type of Diabetes: 2
Pre-Admission Diabetes Regimen
02/18/24
01:58
Creatinine 1.1
Lab Results
Hemoglobin A1c 7.4 % (4.0-5.6) H 02/17/24 03:12
Insulin Pump Settings
IP Diabetes Regimen
02/17/24 02/17/24 02/17/24
11:35 17:28 22:34
Glucose
POC Glucose 132 H 173 H 121 H
02/18/24 02/18/24 02/18/24
01:58 07:06 07:08
Glucose 112 H
POC Glucose 149 H 129 H
Meal type: Dinner
Meal type: Breakfast
Amount consumed: 100%
Amount consumed: 85%
Patient Education
[2024-02-18] MEDS: FARXIGA 10 MG PO (08:41)
[2024-02-18] MEDS: TRICOR 145 MG PO (08:41)
[2024-02-18] MEDS: TOPROL XL 25 MG PO (08:42)
[2024-02-18] MEDS: NICODERM TRANSDERMAL 21 MG TRANSDERM (08:42)
[2024-02-18] MEDS: PROTONIX 40 MG PO (08:42)
[2024-02-18] MEDS: LOW STRENGTH ASPIRIN 81 MG PO (08:42)
[2024-02-18] MEDS: COZAAR 25 MG PO (08:42)
[2024-02-18] MEDS: BRILINTA 90 MG PO (08:42)
--- NOTE | 2024-02-18 09:28 | CM ---
Addendum entered by Lelo Perkins RN 02/18/24 11:10:
Discussed with patient and he is agreeable.
Original Note:
Pricing on Entresto 24-26 mg is $335 for a 30 day supply. Patient qualifies for the $10 copay card, with a max of $3250
--- NOTE | 2024-02-18 09:48 | W.PN.CARDCBS ---
Addendum entered and electronically signed by Silvestre Barrera MD 02/18/24 14:30:
I saw and examined the patient.
The Senior Risk Analyst's note was reviewed and I agree with the note.
Comment: Briefly, 58-year-old man presenting with inferior STEMI who underwent drug-eluting stent to the OM on 02/15
Currently asymptomatic from a cardiovascular standpoint, not experiencing any chest discomfort this morning
Has had intermittent dyspnea over the past 2 days
Telemetry reviewed, unremarkable overnight
No evidence of mechanical complication of AR or decompensated heart failure on physical exam
Echocardiogram here with mild to moderately reduced systolic function, LVEF 40%
Plan to discharge on aspirin/Brilinta and high intensity statin for coronary disease
Given his cardiomyopathy will discharge on Toprol, losartan and SGLT2 as well as PRN Lasix
Consider Entresto and spironolactone as an outpatient -I am not confident that his blood pressure will tolerate the addition of these meds at this time
Understands that he will need to establish care with a rail track maintainer in [place]
Reviewed cardiovascular benefits of smoking cessation
Original Note:
Today's Communication / Plan
-
Continue post AR care
Meds: ASA/Brilinta, [id number] bid, losartan 25mg, atorvastatin 80mg, Lasix 20mg prn wt gain/edema
f/u PCP and Cardiology when returns to [place]
HF education provided, will need f/u Echo 3-6 mo
for d/c home if bp stable after losartan initiated
Impression / Plan
-
This is a 58 y/o white male, PMH sig for HTN, HLD, NIDDM, active tobacco abuse, no sig FH, lives in [place] and travels to the [facility] for work.
Presented to ER after several days of intermittent chest pain/burning, no associated symptoms, waking him at night, duration of 1-2 hours, relieved with ambulation. Today, he developed non-exertional chest pain and pressure with diaphoresis while at
work. This prompted him to come to the ER. EKG SR 90s with inferior ST elevations, as well as anteroseptal TWI. He was given aspirin 324mg, brilinta 180mg, heparin 5000u, as well as morphine 4mg for pain. He continues to have 7-8 chest
pain/pressure with mild dyspnea. First troponin 0.064. Brought urgently to label paster.
IMPRESSION/PLAN:
Acute Inferior STEMI - s/p PCI OM1 3.0 x 26 mm Medtronic Catrachito DARIAN 02/15
ELECTRIC CELL TENDER RCA with L to R collaterals
tele no further NSVT seen
troponin peaked at 126
Echo EF 40%, basal mid inferior, inferolateral and mid anterolateral wall HK, mild LVH
BNP 1100, did receive another 20mv IV lasix wt down 3kg, RA, denies SOB, will send home with PRN lasix for wt gain/edema
DAPT ASA/Brilinta, ok with cost
continue metoprolol succinate 25mg BID
BP still on low side, will resume losartan 25mg daily, stop amlodipine and losartan/HCTZ
cardiac rehab c/s
f/u Breaker Up in [place] 2-4 weeks
If bp stable plan for d/c home today
Acute HFrEF - EF 40% by echo and elevated LVEDP, diuresed well last 2 days
continue toprol, will add back low dose losartan, will give Lasix 20mg PRN SOB, swelling, wt gain
reviewed 2gNa Mediterranean diet, daily wt
HLD- currently not on statin, LDL 107, TG 259
start atorvastatin 80mg and stop fenofibrate
will need f/u LFT, lipid profile in 6-8 weeks
HTN- BP soft but with EF 40% will add back low dose losartan, monitor bp as may need titration as outpt
continue torpol
DM- continue empagliflozin, stop pioglitazone with EF 40%
HgbA1C 7.4%, appreciate DM educator input, will f/u PCP when returns home regarding new DM meds
Tobacco abuse- must quit
NicoDerm patch
Obesity- weight loss encouraged, he has lost 50lbs on carnivorous diet, recommended heart health Mediterranean, 2GNa diet moving forward
02/15 [facility]:
1. Successful percutaneous coronary artery intervention of a hazy, thrombotic 90 to 95% proximal OM1 stenosis (MARTÍN II flow) with one 3.0 x 26 mm Medtronic Catrachito drug-eluting stent, postdilated using a 3.0 x 15 mm NC balloon at 18 joão distally and
22 joão proximally with an excellent angiographic result and MARTÍN-3 flow restored.
2. 100% chronic total occlusion of proximal RCA with [id number] collaterals.
3. Significantly elevated LVEDP at 29 mmHg.
Progress Note - Breaker Up
Subjective
Date of Service: February 18, 2024
no cp, sob, anxious to leave today
Objective
Labs:
02/18/24 01:58
02/18/24 01:58
Labs
Hgb 15.9 g/dL (13.0-18.0) 02/18/24 01:58
Hct 46.1 % (39.0-52.0) 02/18/24 01:58
Plt Count 216 10^3/uL (130-400) 02/18/24 01:58
PT 13.0 Sec (11.4-14.6) 02/16/24 13:59
INR 1.00 02/16/24 13:59
Sodium 138 mmol/L (135-145) 02/18/24 01:58
Potassium 3.9 mmol/L (3.5-5.1) 02/18/24 01:58
BUN 27 mg/dl (9-20) H 02/18/24 01:58
Creatinine 1.1 mg/dL (0.7-1.3) 02/18/24 01:58
Glucose 112 mg/dl (70-99) H 02/18/24 01:58
Troponins
02/16/24 02/16/24 02/17/24
13:59 22:19 03:12
Troponin I 0.064 H* 126.000 H* 95.100 H*
02/17/24
10:00
Troponin I Cancelled
Vital Signs and I&O:
Vital Signs
Temp Pulse Resp BP Pulse Ox
97.8 F 82 20 110/80 97
02/18/24 07:02 02/18/24 08:42 02/18/24 07:02 02/18/24 08:42 02/18/24 07:02
Vital Signs
Temp Pulse Resp BP Pulse Ox
97.8 F 82 20 110/80 97
02/18/24 07:02 02/18/24 08:42 02/18/24 07:02 02/18/24 08:42 02/18/24 07:02
Intake & Output
02/16/24 02/17/24 02/18/24 02/19/24
06:59 06:59 06:59 06:59
Intake Total 855 / 855 480 / 480
Output Total 2100 / 2100 500 / 500
Balance -1245 / -1245 -20 / -20
Physical Exam
Physical Exam
NAD, AOX3
S1, S2, RRR
CTAB, non labored, no wheeze
SNTND bsx4
R rad site c/d/i
[2024-02-18 11:22] VITALS: BP 113/68
--- NOTE | 2024-02-18 14:29 | W.DS.TRANS ---
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
-
Discharge Instructions:
Discharge Diagnosis/Procedures STEMI, s/p angioplasty and stent to Left
Circumflex artery
Diet Low Cholesterol,Diabetic, Carb Controlled,2 Gram
Sodium
Additional Diets Mediterranean diet
Activity No strenuous activity
Additional Activity For 2 weeks
Driving Restrictions No driving for 24 hours
Other Services Cardiac Rehab
Specialty Instructions Weigh Daily
Instructions:
Stand-Alone Forms: DC Instructions- Cath/EP Lab
Changes to Home Medications: Yes
Discharge Medications:
DC Medications w/original date entered in [facility]
empagliflozin 25 mg tablet (Jardiance) 25 mg PO DAILY diabetes 02/16/24
trazodone 50 mg tablet 50 mg PO HS PRN sleep 02/16/24
aspirin 81 mg chewable tablet 81 mg PO DAILY #1 tab 02/17/24
atorvastatin 80 mg tablet 80 mg PO QPM #90 tabs 02/17/24
metoprolol succinate 25 mg tablet,extended release 24 hr 25 mg PO BID #60 tabs 02/17/24
ticagrelor 90 mg tablet (Brilinta) 90 mg PO BID #60 tabs 02/17/24
furosemide 20 mg tablet (Lasix) 20 mg PO DAILY PRN Weight gain/edema #30 tabs 02/18/24
losartan 25 mg tablet 25 mg PO DAILY #90 tabs 02/18/24
Home Medication Changes
stopped amlodipine, fenofibrate, actos, losartan-HCTZ
New to losartan 25, lasix 20, brilinta, asa, metoprolol, atorvastatin
Pending Results: No
== END 2024-02-18 12:26 | disposition home or self-care (01) | DRG 322 ==
LOC: IVU 17:04
PROVIDERS: Internal Medicine Cardiovascular Disease; Nurse Practitioner; ADMITTING PHYSICIAN Internal Medicine Interventional Cardiology; EMERGENCY PHYSICIAN Emergency Medicine
PROC: 027034Z Dilation of Coronary Artery, One Artery with Drug-eluting Intraluminal Device, Percutaneous Approach (ICD-10-PCS; 2024-02-16)
PROC: B2111ZZ Fluoroscopy of Multiple Coronary Arteries using Low Osmolar Contrast (ICD-10-PCS; 2024-02-16)
PROC: 4A023N7 Measurement of Cardiac Sampling and Pressure, Left Heart, Percutaneous Approach (ICD-10-PCS; 2024-02-16)
DX: I21.19 ST elevation (STEMI) myocardial infarction involving other coronary artery of inferior wall (principal); I25.10 Atherosclerotic heart disease of native coronary artery without angina pectoris; E11.9 Type 2 diabetes mellitus without complications; E78.00 Pure hypercholesterolemia, unspecified; F17.210 Nicotine dependence, cigarettes, uncomplicated; I10 Essential (primary) hypertension; E66.9 Obesity, unspecified; Z68.32 Body mass index [BMI] 32.0-32.9, adult; Z79.82 Long term (current) use of aspirin
CPT/HCPCS: 80048; 80053; 80061; 82962; 83036; 83735; 83880; 84484; 85025; 85027; 85347; 85610; 93005; 93306; 93458; 96361; 96374; 96375; 99152; 99153; 99291; C1725; C1769; C1874; C1894; C9606; J1327; Q9950; Q9967